=== PATIENT | female | born 1945 | race Caucasian/White ===

== ENCOUNTER 2023-10-23 08:50 | Emergency (ER) | payer MEDICARE, SELFPAY ==
[2023-10-23 08:57] VITALS: BP 142/74
[2023-10-23 09:26] LABS: % Basophils 1.3 % (0-2); % Eosinophils 5.7 % (0-6); % Immature Granulocytes 0.2 % (0-0.5); % Lymphocytes 26.4 % (20.5-51.1); % Monocytes 6.2 % (1.7-9.3); % Neutrophils 60.2 % (42.2-75.2); Absolute Basophils 0.1 10^3/uL (0-0.2); Absolute Eosinophils 0.3 10^3/uL (0-0.7); Absolute Lymphocytes 1.2 10^3/uL (1.2-3.4); Absolute Monocytes 0.3 10^3/uL (0.1-0.6); Absolute Neutrophils 2.8 10^3/uL (1.4-6.5); Hematocrit 33.3 % (37.0-47.0); Hemoglobin 10.8 g/dL (12.0-16.0); Mean Corp Hgb Conc. 32.4 g/dL (33.0-37.0); Mean Corpuscular Hgb 29.7 pg (27.0-31.0); Mean Corpuscular Volume 91.5 fL (81.0-99.0); Mean Platelet Volume 9.7 fL (7.4-10.4); Nucleated Red Blood Cells % 0 %; Platelet Count 213 10^3/uL (130-400); Red Blood Cell Count 3.64 10^6/uL (4.20-5.40); Red Cell Dist. Width 17.8 % (11.5-14.5); White Blood Cell Count 4.7 10^3/uL (4.8-10.8)
--- NOTE | 2023-10-23 09:27 | ED.GENMED ---
History of Present Illness
General
Chief Complaint: Swelling
Time Seen by Provider: 10/23/23 09:01
Travel History
Have you had any contact with someone who has COVID-19?: No
Do you have any symptoms of coronavirus? Fever > 100 degrees, chills, cough, shortness of breath, sore throat, loss of taste or smell, muscle aches, or headache?: No
History of Present Illness
History of Present Illness:
78-year-old female with history of A-fib on Eliquis, chronic lymphedema, chronic indwelling Caal catheter due to stress incontinence, hypertension, and hyperlipidemia presents to the emergency department for evaluation of right lower
abdominal/pelvic pain as well as nausea and diarrhea. She states she has had intermittent diarrhea for the past 3 weeks. Was admitted to [facility] in mid to late September, at this time reason is unclear, and is currently being treated for
right lower extremity cellulitis with IV daptomycin via left upper extremity midline. Patient insist that her diarrhea began before initiation of daptomycin. Denies any fevers or chills
Past History
Past History
ED Past Medical History: Arrthythmia (Atrial fibrillation), HTN, Psychiatric (Anxiety, depression) and Other (Lower extremity lymphedema)
ED Past Surgical History: Cholecystectomy, Orthopedic (Bilateral knee replacements), Tonsilectomy and Other (Gastric sleeve)
Social History
Tobacco: Non-smoker
Drug: None
Review of Systems
Review of Systems
Allergies reviewed?: Yes
All Other Systems: ROS reviewed and negative except as documented in HPI and ROS
Phy Exam
Physical Exam
Physical Exam:
GEN: Well appearing, NAD, WDWN
Eyes: PERRLA, EOMs intact, no scleral icterus
HENT: NCAT, oral mucosa moist, no JVD
Lungs: CTAB, no wheezes, rales, rhonchi, normal chest wall excursion
Cardiac: RRR, no M/R/G, no peripheral edema. Radial pulses 2+ bilat
Abdomen: Obesity limits exam, focal right lower abdominal tenderness, not specific to McBurney's point, no masses. Caal catheter in place, clear urine with white sediment noted
Neuro: AO x 3, no focal deficits to BUE/BLE, normal sensation throughout
MSK: Massive bilateral lower extremity lymphedema. Venous stasis dermatitis circumferentially to the lower third of bilateral lower extremities. Right lower extremity is noted to have a superficial ulceration anteriorly adjacent to the venous
stasis with no significant warmth or tenderness, good granulation tissue at the wound base.
Skin: No rashes, petechiae. Normal color, no pallor or jaundice.
Psych: Calm, cooperative, proper hygiene
Scores
Heart Failure Risk
Heart Failure Risk Score: Not Applicable
Course
Orders/Labs/Results
Orders:
Orders
10/23/23 09:15
CT Abd/Pel (IV only)-DH only Urgent
Comment:
Reason For Exam: RLQ pain
10/23/23 09:18
Complete Blood Count/With Diff Urgent
Comprehensive Metabolic Panel Urgent
10/23/23 12:33
Furosemide [Lasix] 60 mg IV NOW STA
Abnormal Lab Results
10/23/23
09:18
WBC 4.7 L 10^3/uL
(4.8-10.8)
RBC 3.64 L 10^6/uL
(4.20-5.40)
Hgb 10.8 L g/dL
(12.0-16.0)
Hct 33.3 L %
(37.0-47.0)
MCHC 32.4 L g/dL
(33.0-37.0)
RDW 17.8 H %
(11.5-14.5)
BUN 26 H mg/dl
(7-17)
Creatinine 1.1 H mg/dL
(0.6-1.0)
Glucose 158 H mg/dl
(70-99)
10/23/23 09:18
10/23/23 09:18
Vital Signs
Initial and Last Documented VS:
Initial Vital Signs
Temp Pulse Resp BP Pulse Ox
97.7 F 70 18 142/74 100
10/23/23 08:57 10/23/23 08:57 10/23/23 08:57 10/23/23 08:57 10/23/23 08:57
Last Documented Vital Signs
Temp Pulse Resp BP Pulse Ox
97.7 F 70 18 103/54 97
10/23/23 08:57 10/23/23 08:57 10/23/23 08:57 10/23/23 11:27 10/23/23 12:45
MDM/Problems Addressed
MDM/Problems Addressed:
Patient's primary concern is for diarrhea which is been ongoing for 3 weeks. Certainly C. difficile is a concern given her recent hospital stay and multiple courses of antibiotics. She was unable to have any bowel movements in the emergency
department. She is clinically stable and suitable for discharge to a nursing facility where C. difficile test can be obtained if appropriate. She also noted increased leg edema and weight gain however has no respiratory symptoms concerning for
acute CHF. This is likely due to at least in some part her sedentary state at rehab and chronic lymphedema, IV Lasix given in the emergency department and will recommend 1 week course of increased dose of furosemide at her facility as her renal
function appears to be baseline
*Critical Care Note
Total Time (30-74mins, 75-104mins- exclusive of procedures): Not Applicable
Update Note
Update Note:
I was able to obtain records from [facility], patient was admitted to their hospital in September due to right lower extremity cellulitis as well as a VRE urinary tract infection. She was treated with antibiotics and discharged. It
is not clear at this time why she was started on daptomycin earlier this month as this appears to have been initiated at the senior living
ED Attending Note
-
Portions of this chart may have been created with voice recognition software.� Occasional wrong word or��sound alike� substitutions may have occurred due to the inherent limitations of voice recognition software.
Discharge Plan
Departure
Patient Disposition: Alf/SNF
Date of Disposition: 10/23/23
Time of Disposition: 12:34
Discharge Problem:
Lymphedema of both lower extremities, Diarrhea, Lymphedema
Prescriptions:
No Action
ropinirole 1 MG tablet
3 mg PO HS
apixaban [Eliquis] 5 MG tablet
5 mg PO BID
ropinirole 2 MG tablet
2 mg PO BID@0830,1630
melatonin 5 MG tablet
10 mg PO HSPRN PRN (Reason: sleep)
multivitamin with folic acid [Tab-A-Alissa] 1 TABLET tablet
1 tab PO DAILY
acetaminophen 325 MG tablet
650 mg PO Q4HPRN PRN (Reason: mild pain/SHOEMAKER/temp> 100.4F) 0RF
metoprolol tartrate 50 MG tablet
75 mg PO BID 0RF
trospium [Sanctura] 20 MG tablet
20 mg PO BID
clonazepam 1 MG tablet
1 mg PO BID Qty: 10 0RF
furosemide 40 MG tablet
40 mg PO DAILY 0RF
lidocaine [Aspercreme (lidocaine)] 1 PATCH adhesive patch,medicated
2 patch topical HS 0RF
spironolactone 12.5 MG tablet
12.5 mg PO DAILY 0RF
lisinopril 10 MG tablet
10 mg PO DAILY 0RF
docusate sodium 100 MG capsule
100 mg PO BID 0RF
gabapentin 300 MG capsule
600 mg PO TID 0RF
Rx Instructions:
Hold if lethargic/sleepy/hypotensive
Referrals:
Gary Jarvis MD [Family Provider] -
Activity Restrictions/Additional Instructions:
Krystal should have her Lasix increased from 20mg three times daily to 40mg in the morning and afternoon, and 20mg at nighttime, for 5 days
Please send stool cultures and C diff test if diarrhea continues
If Krystal develops difficulty breathing, please consider re-evaluation in the hospital
Interventions
Interventions:
*Risk Screen - Suicide Last Done: 10/23/23 09:47
*General Assessment Last Done: 10/23/23 11:24
*Neglect/Abuse Screening Last Done: 10/23/23 09:47
ED- Fall Risk Assessment Last Done: 10/23/23 13:34
*ED COVID-19 Vaccine History Last Done: 10/23/23 11:24
*Nursing Disposition Last Done: 10/23/23 13:34
TH-Uxcdgn-Pfpboiaogc Assessment Last Done: 10/23/23 09:46
ED- Cardiac Assessment Last Done: 10/23/23 09:46
ED- Pulmonary Assessment Last Done: 10/23/23 09:46
ED-Skin Assessment Last Done: 10/23/23 09:45
Discharge Date and Time
Discharge Date/Time: 10/23/23 13:37
[2023-10-23 09:41] LABS: ALT (SGPT) 22 U/L (0-35); AST (SGOT) 30 U/L (14-36); Albumin 3.9 g/dl (3.5-5.0); Alkaline Phosphatase 72 U/L (38-126); Blood Urea Nitrogen 26 mg/dl (7-17); Calcium 9.2 mg/dl (8.4-10.2); Carbon Dioxide 29 mmol/L (22-30); Chloride 103 mmol/L (98-107); Glucose 158 mg/dl (70-99); Potassium 3.7 mmol/L (3.5-5.1); Sodium 140 mmol/L (135-145); Total Bilirubin 0.6 mg/dl (0.2-1.3); Total Protein 6.6 g/dl (6.3-8.2)
[2023-10-23 11:24] VITALS: BMI 35.2
[2023-10-23 11:27] VITALS: BP 103/54
[2023-10-23] MEDS: LASIX 60 MG IV (12:49)
== END 2023-10-23 13:37 ==
LOC: EMR 08:50
PROVIDERS: Physician Assistant; EMERGENCY PHYSICIAN Emergency Medicine; FAMILY PHYSICIAN Internal Medicine
DX: I89.0 Lymphedema, not elsewhere classified (principal); R19.7 Diarrhea, unspecified; I48.91 Unspecified atrial fibrillation; Z79.01 Long term (current) use of anticoagulants; I10 Essential (primary) hypertension; E78.5 Hyperlipidemia, unspecified
CPT/HCPCS: 99285; 96374; 74177; 80053; 85025; Q9967